=== PATIENT | female | born 1970 | race Caucasian/White ===

== ENCOUNTER 2017-02-06 14:49 | Observation (INO) ==
[2017-02-06] MEDS ORDERED: Aspirin 81 MG TAB.CHEW PO ONE (15:14)
--- NOTE | 2017-02-06 15:19 | Emergency Department Note ---
Disposition Clinical Impression: Chest pain, Hypertension Disposition: Admitted As Inpatient Condition: Good Referrals: Julio Mcdowell MD [Primary Care Provider] - Forms: ED Satisfaction Letter Time of Disposition: 16:52 Chest Pain HPI - General Chief Complaint: ED Chest Pain Stated Complaint: Chest pain, lightheaded Time Seen by Provider: 02/06/17 15:05 Source: patient Limitations: no limitations Vital Signs Reviewed: Yes Nursing Notes Reviewed: Yes - History of Present Illness HPI Narrative: Patient is a 46-year-old obese white female who presented to the emergency department today by car with complaints of left-sided chest discomfort that began actually 7:30 this morning. Patient states her pain has been constant and radiating into her left neck and left jaw and left shoulder and upper arm, associated with mild shortness of breath, mild nausea, and lightheadedness. Patient states she is awaiting outpatient evaluation by cardiology, reporting she has an appointment on the of this month with cardiology group here for evaluation of chest pain. Patient states she was seen in the emergency department at the end of December with similar symptoms, had an EKG labs and a chest x-ray in the emergency department was discharged home to follow-up with her family doctor and get set up for an outpatient stress test. Patient denies any prior cardiac testing in the past. Patient states she was just seen by her doctor last Monday in his office for follow-up from the December ED visit, she was scheduled for the cardiology follow-up in February 23, started on metoprolol for the first time for her elevated blood pressure, and she was prescribed one baby aspirin daily and nitroglycerin sublingual tabs to take when necessary for chest pain. Patient states today the pain was constant which she felt was much worse in intensity and lasting longer than she experienced in the past, and at around 12:30 she began taking the nitroglycerin as directed by her doctor. Patient states the pain has gone from a 10 out of 10 in severity to a 6 out of 10 in severity following 1 Nitro-Tab at home prior to arrival. Patient denies any new symptoms from her prior episode in December. Patient does not smoke. Patient has a strong family history of cardiac disease reporting that both her mother and her father had heart attacks and her father from a heart attack in 2014. Patient denies any other associated symptoms today with this chest discomfort. Pt complaint: chest pain Severity scale (1-10): 8 - Related Data Previous Rx's Medication Instructions Recorded Hydroxyzine HCl 25 mg PO Q4H PRN #30 tablet 05/07/15 Allergies Allergy/AdvReac Type Severity Reaction Status Date / Time Hydromorphone [From Dilaudid] AdvReac Vomiting Verified 05/07/15 15:53 prednisone AdvReac Palpitation Verified 05/07/15 15:52 s Sulfa (Sulfonamide AdvReac Hives Verified 05/07/15 15:51 Antibiotics) All systems ED: reviewed and negative except as stated. Constitutional: Denies: fever Eyes: Denies: eye pain, vision change ENT ED: Denies: congestion, dysphagia Cardiovascular: Reports: chest pain. Denies: palpitations, dyspnea on exertion , orthopnea, edema, syncope, paroxysmal nocturnal dyspnea Respiratory: Reports: dyspnea. Denies: cough, hemoptysis, stridor Gastrointestinal: Reports: nausea. 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 Absent: lymphadenopathy - Chest Chest inspection: Present: normal inspection, symmetric chest wall rise. Absent : tenderness - Respiratory Respiratory exam: Present: normal lung sounds bilaterally. Absent: respiratory distress, wheezes, stridor - Cardiovascular Cardiovascular exam: Present: regular rate, normal rhythm, normal heart sounds. Absent: JVD - Abdominal Exam Abdominal exam: Present: soft, Non-Tender, normal bowel sounds. Absent: tenderness, distention, guarding - Rectal Exam Rectal exam: Present: deferred - Extremities Exam Extremities exam: Present: normal inspection, full ROM, normal capillary refill. Absent: tenderness, pedal edema - Back Exam Back exam: Present: normal inspection, full ROM. Absent: tenderness, CVA tenderness (R), CVA tenderness (L) - Neurological Exam Neurological exam: Present: alert, oriented X3, CN II-XII intact. Absent: motor sensory deficit, reflexes normal - Psychiatric Psychiatric exam: Present: normal affect, normal mood - Skin Skin exam: Present: warm, dry. Absent: diaphoresis, pallor Course Course Narrative: Patient is a 46-year-old obese white female who presents to the emergency department with left-sided chest discomfort and has a history of hypertension and positive family history for coronary artery disease. Patient has had no prior cardiac evaluation nor admission. At this time we will go ahead and administer additional aspirin, performed a nitroglycerin trial, obtain labs and chest x-ray and keep patient on a cardiac/vascular sonographer. Patient currently is in no acute distress, no diaphoresis, vital signs are stable. - Reevaluation(s) Reevaluation #1: Chest X-Ray 02/06/17 15:15 IMPRESSION: Negative low lung volume portable chest. D/ / 02/06/2017 16:04:56 Faisal Acuna MD / deja Interpreting Provider: Faisal Acuna MD Reevaluation #2: Patient currently at this time following aspirin and nitroglycerin trial is resting comfortably with significant improvement. Patient rates her pain a 0 out of 10 following nitroglycerin administration. Discussed with patient about being admitted for further evaluation of this chest discomfort, and patient agrees with plan and would like to stay in the hospital for further evaluation. Patient's vital signs are stable, patient is chest pain-free currently will admit for further evaluation. Vital Signs Temperature 97.5 F L 02/06/17 14:54 Pulse Rate 63 02/06/17 14:54 Respiratory Rate 18 02/06/17 14:54 Blood Pressure 147/98 02/06/17 14:54 O2 Sat by Pulse Oximetry 98 02/06/17 14:54 Temperature 97.5 F L 02/06/17 14:54 Pulse Rate 61 02/06/17 16:21 Respiratory Rate 18 02/06/17 16:21 Blood Pressure 134/72 02/06/17 16:21 O2 Sat by Pulse Oximetry 97 02/06/17 16:21 Oxygen Delivery Oxygen Delivery Room Air Chest Pain - Medical Records Medical records reviewed: Yes I reviewed the patient's medical records. - Lab Data Lab results reviewed: Yes I reviewed the patient's lab results. Result diagrams: 02/06/17 15:00 02/06/17 15:00 Lab Results 02/06/17 02/06/17 02/06/17 Range/Units 15:00 15:00 15:00 WBC 9.1 (4.3-11.1) K/mcL RBC 5.22 H (3.82-4.97) M/mcL Hgb 14.9 (11.5-15.4) g/dL Hct 45.8 H (35.3-44.9) % MCV 87.7 (83.0-100.0) fL MCH 28.5 (28.0-33.3) pg MCHC 32.5 (31.6-35.5) g/dL RDW 13.6 (11.5-14.5) % Plt Count 271 (140-400) K/mcL MPV 11.4 (9.4-12.4) fL Immature Gran % 0.2 (0-4) % Seg Neutrophils % 68.0 % Lymphocytes % 24.9 % Monocytes % 5.2 % Eosinophils % 1.2 % Basophils % 0.5 % Neutrophils # 6.2 (1.6-8.9) K/mcL Lymphocytes # 2.3 (0.6-4.6) K/mcL Monocytes # 0.5 (0.0-1.3) K/mcL Eosinophils # 0.1 (0.0-0.6) K/mcL Basophils # 0.1 (0.0-0.2) K/mcL PT 11.5 (9.4-12.1) Seconds INR 1.1 APTT 34.0 (26.0-36.0) Seconds Sodium 139 (136-145) mEq/L Potassium 3.7 (3.5-4.5) mEq/L Chloride 102 (98-109) mEq/L Carbon Dioxide 29 (19-29) mEq/L BUN 11 (7-20) mg/dL Creatinine 0.75 (0.57-1.11) mg/dL Est GFR ( Amer) > 60 (> 60) Est GFR (Non-Af Amer) > 60 (> 60) BUN/Creatinine Ratio 15 (6-26) Glucose 85 (70-99) mg/dL Calculated Osmolality 287 (280-300) Calcium 9.4 (8.6-10.8) mg/dL Troponin I (0-0.03) ng/mL 02/06/17 Range/Units 15:00 WBC (4.3-11.1) K/mcL RBC (3.82-4.97) M/mcL Hgb (11.5-15.4) g/dL Hct (35.3-44.9) % MCV (83.0-100.0) fL MCH (28.0-33.3) pg MCHC (31.6-35.5) g/dL RDW (11.5-14.5) % Plt Count (140-400) K/mcL MPV (9.4-12.4) fL Immature Gran % (0-4) % Seg Neutrophils % % Lymphocytes % % Monocytes % % Eosinophils % % Basophils % % Neutrophils # (1.6-8.9) K/mcL Lymphocytes # (0.6-4.6) K/mcL Monocytes # (0.0-1.3) K/mcL Eosinophils # (0.0-0.6) K/mcL Basophils # (0.0-0.2) K/mcL PT (9.4-12.1) Seconds INR APTT (26.0-36.0) Seconds Sodium (136-145) mEq/L Potassium (3.5-4.5) mEq/L Chloride (98-109) mEq/L Carbon Dioxide (19-29) mEq/L BUN (7-20) mg/dL Creatinine (0.57-1.11) mg/dL Est GFR ( Amer) (> 60) Est GFR (Non-Af Amer) (> 60) BUN/Creatinine Ratio (6-26) Glucose (70-99) mg/dL Calculated Osmolality (280-300) Calcium (8.6-10.8) mg/dL Troponin I 0.00 (0-0.03) ng/mL - Radiology Data Radiology results reviewed: Yes I reviewed the patient's radiology results. - EKG Data EKG attestation: Yes I reviewed and interpreted this EKG. EKG results narrative: EKG was obtained interpreted by myself without the fever for cardiology interpretation showing normal sinus rhythm at [address] or T-wave changes are noted this was compared to a prior EKG that was obtained on 2016 and shows no significant changes. Heart Score - Score History: Moderately Suspicious EKG: Normal Age: 45-65 Risk Factors: 1-2 risk factors Troponin: Less than normal limit HEART Score Total: 3 S.B.A.R. - S.B.A.R. Transition of Care: Discussed with hospitalist Dr. Stout, who accepted patient for admission at 4:50 PM. Patient will be admitted to a telemetry bed for further cardiac evaluation. His vital signs are stable at this time
[2017-02-06 15:42] LABS: Basophils # 0.1 K/mcL (0.0-0.2); Basophils % 0.5 %; Eosinophils # 0.1 K/mcL (0.0-0.6); Eosinophils % 1.2 %; Hematocrit 45.8 % (35.3-44.9); Hemoglobin 14.9 g/dL (11.5-15.4); Immature Granulocytes % 0.2 % (0-4); Lymphocytes # 2.3 K/mcL (0.6-4.6); Lymphocytes % 24.9 %; Mean Corpuscular HGB Conc 32.5 g/dL (31.6-35.5); Mean Corpuscular Hemoglobin 28.5 pg (28.0-33.3); Mean Corpuscular Volume 87.7 fL (83.0-100.0); Mean Platelet Volume 11.4 fL (9.4-12.4); Monocytes # 0.5 K/mcL (0.0-1.3); Monocytes % 5.2 %; Neutrophils # 6.2 K/mcL (1.6-8.9); Platelet Count 271 K/mcL (140-400); Red Blood Count 5.22 M/mcL (3.82-4.97); Red Cell Distribution Width 13.6 % (11.5-14.5)
[2017-02-06 15:47] LABS: INR 1.1; Prothrombin Time 11.5 Seconds (9.4-12.1)
[2017-02-06] MEDS: Nitroglycerin 0.4 MG TAB.SUBL SL ONE ×3 (15:50→16:21)
[2017-02-06 15:56] LABS: BUN/Creatinine Ratio 15 (6-26); Blood Urea Nitrogen 11 mg/dL (7-20); Calcium 9.4 mg/dL (8.6-10.8); Carbon Dioxide 29 mEq/L (19-29); Chloride 102 mEq/L (98-109); Glucose 85 mg/dL (70-99); Osmolality,Calculated 287 (280-300); Potassium 3.7 mEq/L (3.5-4.5); Sodium 139 mEq/L (136-145); eGFR For African Americans > 60 (> 60); eGFR For Non-African Americans > 60 (> 60)
[2017-02-06] MEDS ORDERED: Nitroglycerin 1 INCH/GM PACKET TP ONE (16:46)
[2017-02-06] MEDS ORDERED: Naloxone 0.4 MG/ML INJ IVP PRN (17:17)
[2017-02-06] MEDS ORDERED: Nitroglycerin 0.4 MG TAB.SUBL SL PRN (17:22)
--- NOTE | 2017-02-06 17:27 | Internal Med History&Physical ---
Date of Encounter: 02/06/17 Time of Encounter: 17:24 Assessment and Plan (1) Chest pain Current visit: Yes Status: Acute Patient reports severe chest pain radiating to left shoulder, jaw and down her arm, relieved by nitro and aspirin. Risk factors for cardiac disease include strong family history and obesity. EKG showed NSR with no changes from previous EKG. Initial troponin negative at 0.00. Continuous monitoring engineer serial troponins Echocardiogram and stress test in the morning. Qualifiers: Chest pain type: precordial pain Qualified Code(s): R07.2 - Precordial pain (2) Hypertension Current visit: Yes Status: Acute Patient takes metoprolol 25mg BID. Continue home dose of metoprolol. Hold morning dose until after stress test. Qualifiers: Hypertension type: essential hypertension Qualified Code(s): I10 - Essential (primary) hypertension (3) Obesity Current visit: Yes Status: Acute Patient with morbid obesity with BMI of 51. Obesity is an additional risk factor for cardiovascular disease, will advise lifestyle changes with increased exercise and improved diet. Qualifiers: Obesity type: due to excess calories Obesity severity: morbid Qualified Code(s): E66.01 - Morbid (severe) obesity due to excess calories (4) DVT prophylaxis Current visit: Yes Status: Acute anti-embolic stockings Lovenox 40mg SQ daily. Internal Medicine - H&P: HPI Chief complaint: chest pain Admitted From: Emergency Dept Plans for Post Hospital Care: Home History of present illness: Ms. Martínez is a 46 year old female with hypertension, height for thyroid, presented to the emergency department today with complaints of chest pain. Patient reports her chest pain started when she woke up this morning at about 7 AM. She reports it was sharp pain and radiated to her left shoulder, left jaw and down her left arm, with left hand numbness and tingling. She reports the pain increased in severity over time and at noon she decided to take her nitroglycerin, which helped relieve the pain somewhat but did not make it go away and so she decided to come to the emergency department. She was just recently prescribed Nitro-Dur and metoprolol by her PCP, and was awaiting further cardiac testing with an appointment scheduled in January. She reports accompanying nausea, and shortness of breath. She reports occasional palpitations, and lightheadedness. She denies any vomiting, abdominal pain, diarrhea, fever or chills or night sweats. Evaluation in the emergency department included an EKG which showed normal sinus rhythm with heart rate of [address] elevations or depressions and no changes from previous EKG. Troponin was negative at 0.00. Other labs were grossly normal. On exam, patient is alert and oriented, in no acute distress. Heart had regular rate and rhythm, lungs are clear bilaterally to auscultation. Past Med Surg Social Fam HX - Past Medical History Medical history: hypertension, thyroid disease Psychiatric history: depression - Past Surgical History Surgical History: other (tubal ligation) - Social History Smoking Status: Never smoker Smokeless Tobacco Status: No Alcohol use: rarely Drug use: none - Family History Mother Living Status: Still Living Hx Family Cardiac Disorders: Yes Father Living Status: Cause of : CT Hx Family Cardiac Disorders: Yes Internal Medicine - H&P: Meds Aspirin Enteric Coated [Aspirin EC] 81 mg PO DAILY 02/06/17 [History] Levothyroxine [Synthroid] 50 mcg PO QAM 02/06/17 [History] Metoprolol [Lopressor] 25 mg PO BID 02/06/17 [History] Nitroglycerin [Nitrostat] 0.4 mg SL Q5M PRN 02/06/17 [History] Allergies Hydromorphone [From Dilaudid] Adverse Reaction (Verified 05/07/15 15:53) Vomiting prednisone Adverse Reaction (Verified 05/07/15 15:52) Palpitations Sulfa (Sulfonamide Antibiotics) Adverse Reaction (Verified 05/07/15 15:51) Hives All Systems PM: A 10-system review of systems was performed and is negative for pertinent findings except as documented above in the HPI. - Constitutional Constitutional: no chills, no fever(s), no night sweats - EENT Eyes: no change in vision, no discharge, no pain, no photophobia Ears: no ear discharge, no ear pain, no tinnitus Nose, mouth and throat: no dysphagia, no nasal discharge, no neck pain, no sore throat - Cardiovascular Cardiovascular ROS IM: chest pain, dyspnea, lightheadedness, palpitations, no diaphoresis, no syncope - Respiratory Respiratory: dyspnea, no cough, no wheezing, no excessive phlegm production - Gastrointestinal Gastrointestinal: nausea, no abdominal pain, no diarrhea, no hematemesis, no hematochezia, no melena, no vomiting - Genitourinary Genitourinary: no change in urinary stream, no dysuria, no flank pain, no hematuria - Musculoskeletal Musculoskeletal ROS IM: numbness (left hand), tingling (left hand) - Integumentary Integumentary IM: no rash, no unusual bruising - Neurological Neurological ROS: no confusion, no convulsions, no focal weakness, no numbness, no tingling, no tremor(s) - Hematologic/Lymphatic Hematologic/Lymphatic: no easy bruising - Constitutional Vitals: Temp Pulse Resp BP Pulse Ox 97.5 F L 61 18 134/72 97 02/06/17 14:54 02/06/17 16:21 02/06/17 16:21 02/06/17 16:21 02/06/17 16:21 General appearance: Present: A&O X 3, morbidly obese, pleasant, no acute distress - Head Head exam: Present: atraumatic, normocephalic - Eye Eye exam: Present: PERRL, conjuntiva pink, sclera anicteric Pupils: Present: PERRL - Neck Neck exam general surgery: Present: supple, trachea midline. Absent: lymphadenopathy - Respiratory Respiratory exam: Present: CTAB. Absent: accessory muscle use, rales, rhonchi, wheezes - Cardiovascular Cardiovascular exam: Present: RRR, +S1, +S2. Absent: diastolic murmur, gallop, rubs, systolic murmur - GI/Abdominal GI/Abdominal exam: Present: normal bowel sounds, soft, no peritoneal signs. Absent: distended, tenderness - Extremities Exam Extremities exam: Present: warm, radial pulses palpable and symetrical. Absent : calf tenderness, cyanotic, pedal edema - Neurological Exam Neurological exam: Present: CN II-XII intact, oriented X3, no focal deficits. Absent: pronater drift, facial droop, speech deficit - Skin Skin exam: Present: dry, intact Internal Med - H&P Results - Labs CBC & Chem 7: 02/06/17 15:00 02/06/17 15:00 Labs: All Lab Results (24 Hours) 02/06/17 02/06/17 02/06/17 Range/Units 15:00 15:00 15:00 WBC 9.1 (4.3-11.1) K/mcL RBC 5.22 H (3.82-4.97) M/mcL Hgb 14.9 (11.5-15.4) g/dL Hct 45.8 H (35.3-44.9) % MCV 87.7 (83.0-100.0) fL MCH 28.5 (28.0-33.3) pg MCHC 32.5 (31.6-35.5) g/dL RDW 13.6 (11.5-14.5) % Plt Count 271 (140-400) K/mcL MPV 11.4 (9.4-12.4) fL Immature Gran % 0.2 (0-4) % Seg Neutrophils % 68.0 % Lymphocytes % 24.9 % Monocytes % 5.2 % Eosinophils % 1.2 % Basophils % 0.5 % Neutrophils # 6.2 (1.6-8.9) K/mcL Lymphocytes # 2.3 (0.6-4.6) K/mcL Monocytes # 0.5 (0.0-1.3) K/mcL Eosinophils # 0.1 (0.0-0.6) K/mcL Basophils # 0.1 (0.0-0.2) K/mcL PT 11.5 (9.4-12.1) Seconds INR 1.1 APTT 34.0 (26.0-36.0) Seconds Sodium 139 (136-145) mEq/L Potassium 3.7 (3.5-4.5) mEq/L Chloride 102 (98-109) mEq/L Carbon Dioxide 29 (19-29) mEq/L BUN 11 (7-20) mg/dL Creatinine 0.75 (0.57-1.11) mg/dL Est GFR ( Amer) > 60 (> 60) Est GFR (Non-Af Amer) > 60 (> 60) BUN/Creatinine Ratio 15 (6-26) Glucose 85 (70-99) mg/dL Calculated Osmolality 287 (280-300) Calcium 9.4 (8.6-10.8) mg/dL Troponin I (0-0.03) ng/mL 02/06/17 Range/Units 15:00 WBC (4.3-11.1) K/mcL RBC (3.82-4.97) M/mcL Hgb (11.5-15.4) g/dL Hct (35.3-44.9) % MCV (83.0-100.0) fL MCH (28.0-33.3) pg MCHC (31.6-35.5) g/dL RDW (11.5-14.5) % Plt Count (140-400) K/mcL MPV (9.4-12.4) fL Immature Gran % (0-4) % Seg Neutrophils % % Lymphocytes % % Monocytes % % Eosinophils % % Basophils % % Neutrophils # (1.6-8.9) K/mcL Lymphocytes # (0.6-4.6) K/mcL Monocytes # (0.0-1.3) K/mcL Eosinophils # (0.0-0.6) K/mcL Basophils # (0.0-0.2) K/mcL PT (9.4-12.1) Seconds INR APTT (26.0-36.0) Seconds Sodium (136-145) mEq/L Potassium (3.5-4.5) mEq/L Chloride (98-109) mEq/L Carbon Dioxide (19-29) mEq/L BUN (7-20) mg/dL Creatinine (0.57-1.11) mg/dL Est GFR ( Amer) (> 60) Est GFR (Non-Af Amer) (> 60) BUN/Creatinine Ratio (6-26) Glucose (70-99) mg/dL Calculated Osmolality (280-300) Calcium (8.6-10.8) mg/dL Troponin I 0.00 (0-0.03) ng/mL - Diagnostic Studies Chest x-ray Additional comments: Chest X-Ray 02/06/17 15:15 IMPRESSION: Negative low lung volume portable chest. D/ / 02/06/2017 16:04:56 Faisal Acuna MD / yee Interpreting Provider: Faisal Acuna MD
[2017-02-06] MEDS: Acetaminophen 325 MG TABLET PO PRN (22:02)
[2017-02-07 04:37] LABS: Basophils # 0.1 K/mcL (0.0-0.2); Basophils % 0.9 %; Eosinophils # 0.2 K/mcL (0.0-0.6); Eosinophils % 2.3 %; Hematocrit 41.5 % (35.3-44.9); Hemoglobin 13.6 g/dL (11.5-15.4); Immature Granulocytes % 0.4 % (0-4); Lymphocytes # 2.8 K/mcL (0.6-4.6); Lymphocytes % 36.1 %; Mean Corpuscular HGB Conc 32.8 g/dL (31.6-35.5); Mean Corpuscular Hemoglobin 28.5 pg (28.0-33.3); Mean Platelet Volume 11.8 fL (9.4-12.4); Monocytes # 0.6 K/mcL (0.0-1.3); Monocytes % 7.6 %; Neutrophils # 4.1 K/mcL (1.6-8.9); Platelet Count 247 K/mcL (140-400); Red Blood Count 4.77 M/mcL (3.82-4.97); Red Cell Distribution Width 13.6 % (11.5-14.5); Segmented Neutrophils % 52.7 %
[2017-02-07 04:48] LABS: BUN/Creatinine Ratio 17 (6-26); Blood Urea Nitrogen 12 mg/dL (7-20); Calcium 8.6 mg/dL (8.6-10.8); Carbon Dioxide 26 mEq/L (19-29); Chloride 105 mEq/L (98-109); Glucose 77 mg/dL (70-99); Osmolality,Calculated 287 (280-300); Potassium 3.8 mEq/L (3.5-4.5); Sodium 139 mEq/L (136-145); eGFR For African Americans > 60 (> 60); eGFR For Non-African Americans > 60 (> 60)
[2017-02-07] MEDS ORDERED: Regadenoson 0.4 MG/5 ML SYRINGE IVP ONE ×2 (06:12→06:14)
[2017-02-07] MEDS: Acetaminophen 325 MG TABLET PO PRN (06:13)
[2017-02-07] MEDS: Aspirin Enteric Coated 81 MG Tablet PO SCH (08:27)
--- NOTE | 2017-02-07 08:48 | ECHO - Doppler Report ---
Echocardiogram Name: Qian Martínez Date of Study: 02/06/2017 Date: 1970 Ht: 63.0 in Medical Record#: [id number] Age: 46 Wt: 289.0 lb Gender: Female BSA: 2.26 Order #: [id number] Location: [facility] Room #: [id number] Reading Physician: Minh Goldberg MD, [facility] Crate Maker: Petra Rod Ordering Physician: Sarah Singh CNP Primary Physician: None Indications: Chest pain Impressions: Normal LV systolic function, LVEF 70%. Mild concentric left ventricular hypertrophy. Normal right ventricular size and function. Mildly dilated left atrium. Mild mitral regurgitation. No evidence of pulmonary hypertension. Left Ventricular Wall Motion: Rest Echo Findings All wall segments showed normal motion. Findings: Study Quality * Suboptimal echo windows. ECG Findings * Normal sinus rhythm. Left Ventricle * Normal LV systolic function, LVEF 70%. * Normal LV chamber size. * Mild concentric left ventricular hypertrophy. * Indeterminate diastolic function. Right Ventricle * Normal right ventricular size and function. Left Atrium * Mildly dilated left atrium. Right Atrium * Normal right atrial size. Aorta * Normally sized aortic root. Pericardium * There is no pericardial effusion present. IVC * The IVC is not dilated. Aortic Valve * Trileaflet aortic valve. * No aortic stenosis. * No aortic regurgitation. Mitral Valve * Normal mitral valve structure. * No mitral stenosis. * Mild mitral regurgitation. Tricuspid Valve * Normal tricuspid valve structure. * No tricuspid stenosis. * Trace tricuspid regurgitation. * No evidence of pulmonary hypertension. Pulmonic Valve * Pulmonic valve not well visualized. * No pulmonic stenosis. * No pulmonic regurgitation. History Hypertension Family History of CAD Measurements: BP: 156/ 99 2D Normal Values RVIDd: 2.60 cm IVSd: 1.20 cm 0.6 - 1.0 cm LVIDd: 4.90 cm 3.7 - 5.6 cm LVPWd: 1.20 cm 0.6 - 1.1 cm LVIDs: 2.50 cm 1.5 - 3.6 cm AO: 3.20 cm < 4.0 cm %FS: 49.00 cm >25 % LA volume: 79 Mitral Valve Peak E:1.30 m/sec Peak A:.77 m/sec E/A Ratio:1.7 Tricuspid Valve TV Regurg Peak Grad: 24.00mmHg TV Regurg Peak Elia: 2.46m/sec Updated by Minh Goldberg MD, [facility] on 02/07/2017 8:43:57 AM electronically signed on 02/07/2017 8:44:20 AM with status of Final Wall Motion Phelps: 1=Normal, 2=Hypokinesis, 3=Akinesis, 4=Dyskinesis, 5=Aneurysmal, 6=Hyperkinetic, X=Not Visualized (Blank)=Missing
--- NOTE | 2017-02-07 15:17 | Internal Med Progress Note ---
Date of Encounter: 02/07/17 Time of Encounter: 15:13 - Assessment and plan (1) Chest pain Current Visit: Yes Status: Acute Assessment and plan: currently no chest pain. trop negtaive, no EKG changes ECHO shows normal LVEF with mild concentric LVH s/p first part of stress test today, will have second part tomm continuous tele monitoring, has h/o strong family history for CA Qualifiers: Chest pain type: precordial pain Qualified Code(s): R07.2 - Precordial pain (2) Hypertension Current Visit: Yes Status: Acute Assessment and plan: stable, continue home meds Qualifiers: Hypertension type: essential hypertension Qualified Code(s): I10 - Essential (primary) hypertension (3) Obesity Current Visit: Yes Status: Acute Qualifiers: Obesity type: due to excess calories Obesity severity: morbid Qualified Code(s): E66.01 - Morbid (severe) obesity due to excess calories - Time Spent With Patient 25 - 35 minutes - Subjective Interval history: seen at the bedside, she denies any chest pain at this time she had the first part of stress test done today and planned for second part tomm. - Constitutional Vitals: Temp Pulse Resp BP Pulse Ox 98.0 F 60 17 135/79 96 02/07/17 07:49 02/07/17 07:49 02/07/17 07:49 02/07/17 07:49 02/07/17 07:49 General appearance: Present: A&O X 3, morbidly obese, pleasant, no acute distress Exam: neck- supple chest- b/l clear, no added sounds CVS-s1 and s2, no mrg abd-soft. non tender. bs are present ext- no edema Internal Medicine: Result - Labs CBC & Chem 7: 02/07/17 03:45 02/07/17 03:45 Labs: Short CBC 02/07/17 Range/Units 03:45 WBC 7.8 (4.3-11.1) K/mcL Hgb 13.6 (11.5-15.4) g/dL Hct 41.5 (35.3-44.9) % Plt Count 247 (140-400) K/mcL Neutrophils # 4.1 (1.6-8.9) K/mcL BMP 02/07/17 03:45 Sodium 139 Potassium 3.8 Chloride 105 Carbon Dioxide 26 BUN 12 Creatinine 0.69 Glucose 77 Calcium 8.6 Cardiac Enzymes 02/06/17 02/07/17 Range/Units 21:35 03:45 Troponin I 0.00 0.00 (0-0.03) ng/mL - ABG Interpretation ABG results: PT/INR, D-dimer PT 11.5 Seconds (9.4-12.1) 02/06/17 15:00 Consult Discharge Plan - Plan Referrals: Julio Mcdowell MD [Primary Care Provider] -
--- NOTE | 2017-02-07 16:53 | Electrocardiograph Report ---
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
[2017-02-07] MEDS: *HR* Morphine 2 MG/ML SYRINGE IVP PRN (18:23)
[2017-02-08] MEDS: *HR* Morphine 2 MG/ML SYRINGE IVP PRN (10:09)
[2017-02-08] MEDS: Aspirin Enteric Coated 81 MG Tablet PO SCH (10:09)
[2017-02-08 11:49] VITALS: BP 124/82
--- NOTE | 2017-02-08 13:12 | Nuclear Medicine Stress Report ---
Regadenoson Nuclear 2 day Name: Qian Martínez Date of Study: 02/07/2017 Date: 1970 Ht: 63.0 in Medical Record#: [id number] Age: 46 Wt: 297.0 lb Gender: Female Order #: [id number] Location: [facility] OP Room: [facility] Supervising Provider: Camilla Ronquillo CNP Reading Physician: Ronni Fernandes DO, FACAniket, YOBANI PECK Ordering Physician: Chasity Leahy CNP Primary Care Physician: Julio Mcdowell MD Stress Technologist: Brandee Quijano MOTEL CLERK, CCT Director Equipment: Jean Claude Wood Indications: Chest Pain Impression: Pharmacologic stress ECG is non diagnostic for ischemia due to submaximal HR. Gated EF = 74%. Small sized, mild intensity, fixed anterior perfusion defect. Wall motion is normal. Findings are consistent with artifact. Perfusion imaging was negative for ischemia or infarct. History: Hypertension Stress Test Summary: Stress Test Type: Pharmacologic Regadenoson 0.4mg/5ml given IV Baseline Information: Initial Heart Rate: 57 Blood Pressure: 114/68 Stress Information: Test Terminated Due to (primary): As per protocol Maximum Blood Pressure: 118/72 Maximum Heart Rate: 115 Percent Maximum Heart Rate Achieved: 69 Double Product: [id number] METS Reached: 10 Symptoms: TIGHTNESS Nuclear Summary: SPECT myocardial perfusion imaging using Tc99m Sestamibi given intravenously was performed at rest and following cardiac stress testing. The resting images were obtained following initial dose of 32.5 mCi. Following stress an additional dose of 31.8 mCi was given at peak exercise or 30 seconds post regadenoson infusion. Medication Given: Time Medication Dose Units Route Findings: Stress Note * Resting ECG demonstrated normal sinus rhythm. * No baseline arrhythmias were noted. * Pharmacologic stress ECG is non diagnostic for ischemia due to submaximal HR. * No arrhythmias were noted during stress. * Patient had chest pain/pressure during stress. Hemodynamic responses * Normal hemodynamic responses to pharmacologic stress. Study Quality * Study quality is average. Gated EF % * Gated EF = 74%. Left Ventricle * The left ventricle is not dilated. * LVEDV = 129 mL. NORMALS * Normal wall motion. Anterior Perfusion Rest * Mild anterior reduction in perfusion. Anterior Perfusion Stress * The anterior segment shows a mild reduction in perfusion. TID * No evidence of transient ischemic dilatation. TID ratio * TID ratio = 0.95. Lung Uptake * There is no evidence of increase lung uptake. Updated by Ronni Fernandes DO, FACAniket, CISCO, FASKYLIE on 02/08/2017 1:07:41 PM electronically signed on 02/08/2017 1:08:20 PM with status of Final
--- NOTE | 2017-02-08 14:18 | Discharge Summary ---
Date of Encounter: 02/08/17 Time of Encounter: 14:16 - Discharge Diagnosis (1) Chest pain Priority: Primary Status: Acute Qualifiers: Chest pain type: precordial pain Qualified Code(s): R07.2 - Precordial pain (2) Hypertension Priority: Secondary Status: Acute Qualifiers: Hypertension type: essential hypertension Qualified Code(s): I10 - Essential (primary) hypertension (3) Obesity Priority: Secondary Status: Acute Qualifiers: Obesity type: due to excess calories Obesity severity: morbid Qualified Code(s): E66.01 - Morbid (severe) obesity due to excess calories - Discharge Medications Prescriptions: HYDROcodone/Acet 5/325 mg [[place] 5-325 mg] 1 tab PO Q6H PRN #30 tab PRN Reason: Pain Home Medications: Aspirin Enteric Coated [Aspirin EC] 81 mg PO DAILY 02/06/17 [History] Levothyroxine [Synthroid] 50 mcg PO QAM 02/06/17 [History] Metoprolol [Lopressor] 25 mg PO BID 02/06/17 [History] Nitroglycerin [Nitrostat] 0.4 mg SL Q5M PRN 02/06/17 [History] HYDROcodone/Acet 5/325 mg [[place]oven 5-325 mg] 1 tab PO Q6H PRN #30 tab 02/08/17 [Rx ] Allergies/Adverse Reactions: Allergies Hydromorphone [From Dilaudid] Adverse Reaction (Verified 05/07/15 15:53) Vomiting prednisone Adverse Reaction (Verified 05/07/15 15:52) Palpitations Sulfa (Sulfonamide Antibiotics) Adverse Reaction (Verified 05/07/15 15:51) Hives Procedures/tests Complete & Pending: Procedures Performed prior 72 hours Category Date Time Status NM fabiana perf SPECT multi [NM] Routine Exams 02/06/17 17:22 Taken ECG 12 lead ECG [ECG] AM 0600 Y 02/07/17 06:00 Ordered ECG 12 lead ECG [ECG] Routine Y 02/06/17 15:01 Completed EV echocardiogram Routine Y 02/06/17 17:22 Completed SP pharm nuclear stress Routine Y 02/07/17 07:15 Completed Date of admission: 02/06/17 17:00 Primary care physician: Julio Mcdowell MD Discharging clinician: Gee Stout Anticipated date of discharge: 02/08/17 - Patient Status Disposition: Home, Self-Care Condition: Good Functional capacity at discharge: independent ambulation Overall status at discharge: patient is back to baseline - Discharge Instructions Instructions: Hydrocodone/Acetaminophen (By mouth) Follow Up With: Julio Mcdowell MD [Primary Care Provider] - 02/16/17 1:00 pm - Diet and Activity Activity: resume usual activities as tolerated Diet: advance to your usual diet Interval History: Ms. Martínez is a 46 year old female with hypertension, height for thyroid, presented to the emergency department today with complaints of chest pain. She was just recently prescribed Nitro-Dur and metoprolol by her PCP, and was awaiting further cardiac testing with an appointment scheduled in January. She reports occasional palpitations, and lightheadedness. She denies any vomiting, abdominal pain, diarrhea, fever or chills or night sweats. Evaluation in the emergency department included an EKG which showed normal sinus rhythm with heart rate of [address] elevations or depressions and no changes from previous EKG. Troponin was negative at 0.00. Other labs were grossly normal. ECHO shows normal LVEF with mild concentric LVH. nuclear stress testing was done which was negative for ischemia or infarct. AT this time, the chest pain is less likely 2/2 ACS given negative lab findings , she was advised to keep her cardio appt. on february 24 if the chest pain is persistent she agrees with the plan and is being dc in stable condition Hospital course: Ms. Martínez is a 46 year old female Time spent discussing smoking cessation with patient: more than 10 minutes - Time Spent with Patient Total time spent providing and/or coordinating discharge services: Greater than 30 minutes - Constitutional Vitals: Temp Pulse Resp BP Pulse Ox 98.4 F 78 17 124/82 99 02/08/17 11:48 02/08/17 11:48 02/08/17 11:48 02/08/17 11:48 02/08/17 11:48 General appearance: Present: A&O X 3, morbidly obese, pleasant, no acute distress Exam: - Head Head exam: Present: atraumatic, normocephalic - Eye Eye exam: Present: PERRL, conjuntiva pink, sclera anicteric Pupils: Present: PERRL - Neck Neck exam general surgery: Present: supple, trachea midline. Absent: lymphadenopathy - Respiratory Respiratory exam: Present: CTAB. Absent: accessory muscle use, rales, rhonchi, wheezes - Cardiovascular Cardiovascular exam: Present: RRR, +S1, +S2. Absent: diastolic murmur, gallop, rubs, systolic murmur - GI/Abdominal GI/Abdominal exam: Present: normal bowel sounds, soft, no peritoneal signs. Absent: distended, tenderness - Extremities Exam Extremities exam: Present: warm, radial pulses palpable and symetrical. Absent : calf tenderness, cyanotic, pedal edema - Neurological Exam Neurological exam: Present: CN II-XII intact, oriented X3, no focal deficits. Absent: pronater drift, facial droop, speech deficit - Skin Skin exam: Present: dry, intact
== END 2017-02-08 15:42 | disposition home or self-care (01) ==
LOC: EMEROO 14:49 → 3BNU 14:49
PROVIDERS: ADMIT Nurse Practitioner Family; ATTEND Nurse Practitioner Family